=== PATIENT | male | born 1985 | race African-American/Black ===

== ENCOUNTER 2022-03-21 21:52 | Emergency (ER) | payer OTHER ==
[~2022-03-21] VITALS: Ht 170.2 cm; Wt 102.5 kg
== END 2022-03-21 23:37 | disposition home or self-care (01) ==
LOC: ER 23:29
DX: S61.032A Puncture wound without foreign body of left thumb without damage to nail, initial encounter (principal); W46.0XXA Contact with hypodermic needle, initial encounter; Y92.230 Patient room in hospital as the place of occurrence of the external cause; Y93.F9 Activity, other caregiving
CPT/HCPCS: 99282